=== PATIENT | male | born 1955 | race Caucasian/White ===

== ENCOUNTER → 2019-05-05 | Day surgery (SDC) | payer OTHER ==
[2019-05-03 12:23] LABS: CALCIUM 9.9 mg/dL (8.4-10.2); CREATININE, SERUM 1.24 mg/dL (0.72-1.25)
[~2019-05-05] MED LIST: ACETAMINOPHEN 1000 MG/100 ML IV ONE; ACETAMINOPHEN/CODEINE 300MG - 30MG TAB ONE; AMLODIPINE BESYL5 MG PO; BUPIVACAINE HCL 0.5% INJ 30 ML VIAL INJ ONE; CEFAZOLIN SOD 1 GM/NS 50ML 100 ML IV ONE; DEXAMETHASONE SOD PHOS INJ 4 MG/ML VIAL ONE; FENTANYL CITRATE/PF 100MCG/2 ML INJ ONE; FLOMAX0.4 MG PO; LIDOCAINE HCL 2% LOCAL INJ 5 ML SDV VIAL INJ ONE; LISINOPRIL-HCT1 EACH PO; MIDAZOLAM HCL 2 MG/2 ML VIAL ONE; ONDANSETRON HCL INJ 2MG/ML 2ML 2 MG/ML VIAL ONE; PANTOPRAZOLE SO40 MG PO; PROPOFOL IV EMULSION 10 MG/ML 20 ML VIAL ONE; SEVOFLURANE INHAL SOLN 250 ML PEN BTL ONE; TESTOSTERO INJ
[2019-05-05 09:10] VITALS: BP 114/80
--- NOTE | 2019-05-05 14:36 | Operative Report ---
DATE OF PROCEDURE: 05/05/2019 SURGEON: Abram Klein MD PREOPERATIVE DIAGNOSIS: Left carpal tunnel syndrome. POSTOPERATIVE DIAGNOSIS: Left carpal tunnel syndrome. PROCEDURE PERFORMED: Open left carpal tunnel release. DEALER DEVELOPMENT MANAGER: UNIQUE Castro. ANESTHESIA: General endotracheal intubation anesthesia. IV FLUIDS: Per the anesthesia record. BRIEF DESCRIPTION OF THE PATIENT'S OPERATIVE PROCEDURE: Mr. Alvarado was taken to the operating room, placed in supine position on the operating table. Following induction of general anesthesia as well as endotracheal intubation, the patient's left upper extremity was examined under anesthesia. He was found to have a normal appearing hand. The patient's upper extremity was prepped and draped in standard surgical fashion. The case was begun by creating incision along the thenar palmar crease. This incision was carried through skin only. Blunt dissection was used to deepen the incision to the level of the transverse carpal ligament. The distal edge of the transverse carpal ligament was identified and a hemostat was placed beneath the ligament. The ligament was then divided in line with the skin incision. The floor of the carpal canal was evaluated, found to have no abnormalities. Hemostasis was obtained prior to closing the wound. Wound was closed in a single-layer fashion. Sterile dressings were applied and the patient was then awakened and taken to the postanesthesia care unit in stable condition. Anette Mendoza acted as visual merchandising assistant for this case and was necessary for prepping and draping the patient as well as the retraction of soft tissues and the closure of the wound that allowed this case to be successful. Abram Klein MD EBR/MODL /[id number]
== END | disposition home or self-care (01) ==
LOC: OR 05:27
PROVIDERS: ATTEND Specialist
DX: G56.02 Carpal tunnel syndrome, left upper limb (principal); K21.9 Gastro-esophageal reflux disease without esophagitis; I10 Essential (primary) hypertension; Z01.810 Encounter for preprocedural cardiovascular examination; Z01.812 Encounter for preprocedural laboratory examination
CPT/HCPCS: 36415; 64721; 80048; 93005; J0131; J0690; J1100; J2001; J2250; J2405; J2704; J3010

== ENCOUNTER → 2022-03-20 | Day surgery (SDC) | payer BC, OTHER ==
[~2022-03-20] MED LIST changes: -ACETAMINOPHEN/CODEINE 300MG - 30MG TAB ONE; -CEFAZOLIN SOD 1 GM/NS 50ML 100 ML IV ONE; +DEXAMETHASONE SOD PHOS INJ 4 MG/ML SDV ONE; -DEXAMETHASONE SOD PHOS INJ 4 MG/ML VIAL ONE; -FENTANYL CITRATE/PF 100MCG/2 ML INJ ONE; +FISH OIL 1,2001 EAC1 PO; +KETOROLAC TROMETHAMINE 30 MG/ML VIAL ONE; +LEVOTHYROXINE50 MCG PO; +MAGNESIUM PO; -MIDAZOLAM HCL 2 MG/2 ML VIAL ONE; +POVIDONE IODINE 0.05% 0.05 % ML PO ONE; +VITAMIN B-121000 MC4 PO; +VITAMIN D325 MCG PO; +ZINC PO
[2022-03-20 06:39] LABS: POTASSIUM 3.9 mmol/L (3.5-5.1)
[2022-03-20 06:40] LABS: ANION GAP 13.9 mmol/L (8-16); CALCIUM 9.3 mg/dL (8.4-10.2); CREATININE, SERUM 1.11 mg/dL (0.72-1.25)
[2022-03-20 09:10] VITALS: BP 119/75
== END | disposition home or self-care (01) ==
LOC: OR 06:37
PROVIDERS: ATTEND Specialist
DX: G56.01 Carpal tunnel syndrome, right upper limb (principal); M62.541 Muscle wasting and atrophy, not elsewhere classified, right hand; G47.33 Obstructive sleep apnea (adult) (pediatric); I10 Essential (primary) hypertension; E03.9 Hypothyroidism, unspecified; K21.9 Gastro-esophageal reflux disease without esophagitis; Z01.810 Encounter for preprocedural cardiovascular examination; Z79.899 Other long term (current) drug therapy
CPT/HCPCS: 36415; 64721; 80048; 93005; J0131; J0690; J1100; J1885; J2001; J2405; J2704